=== PATIENT | female | born 1975 | race American Indian/Alaskan Native ===

== ENCOUNTER → 2017-05-23 | Outpatient (CLI) | payer OTHER ==
[2017-05-23 17:27] LABS: FREE T3 2.85 pg/mL (2.77-5.27)
== END ==
LOC: OD 16:03
PROVIDERS: ATTEND Family Medicine
DX: D50.0 Iron deficiency anemia secondary to blood loss (chronic) (principal)
CPT/HCPCS: 36415; 84439; 84481; 86800

== ENCOUNTER 2018-01-30 15:29 | Emergency (ER) | payer OTHER ==
[2018-01-30 15:45] VITALS: BP 133/77
[2018-01-30] MEDS ORDERED: ONDANSETRON 4 MG TAB.RAPDIS PO ONE (15:50)
[2018-01-30] MEDS ORDERED: DIPH/PERTUSS(ACELL)/TETANUS VAC/PF 0.5 ML SYR (>=10YO) IM ONE (15:50)
[2018-01-30] MEDS ORDERED: OXYCODONE-ACETAMINOPHEN 5-325 MG TABLET PO ONE (15:50)
--- NOTE | 2018-01-30 15:51 | ER Document Report ---
ED Medical Screen (RME) - General Chief Complaint: Laceration Stated Complaint: FINGER LACERATION Time Seen by Provider: 01/30/18 15:47 Notes: 42-year-old female patient cut her left volar fingertips with electric hedgetrimmer. TRAVEL OUTSIDE OF THE [place] IN LAST 30 DAYS: No - Related Data Allergies/Adverse Reactions: penicillin G Allergy (Verified 01/30/18 15:48) penicillin G procaine Allergy (Verified 01/30/18 15:48) penicillin V Allergy (Verified 01/30/18 15:48) Penicillins Allergy (Verified 01/30/18 15:48) Past Medical History - Past Medical History Cardiac Medical History: Denies: Hx Coronary Artery Disease, Hx Heart Attack, Hx Hypertension - PREECLAMPSIA Pulmonary Medical History: Denies: Hx Asthma, Hx Bronchitis, Hx COPD, Hx Pneumonia Neurological Medical History: Denies: Hx Cerebrovascular Accident, Hx Seizures Musculoskeltal Medical History: Denies Hx Arthritis Past Surgical History: Denies: Hx Hysterectomy - Immunizations Hx Diphtheria, Pertussis, Tetanus Vaccination: Yes Physical Exam - Vital signs Vitals: Temp Pulse Resp BP Pulse Ox 98.3 F 92 18 133/77 H 97 01/30/18 15:44 01/30/18 15:44 01/30/18 15:44 01/30/18 15:44 01/30/18 15:44 Course - Vital Signs Vital signs: Temp Pulse Resp BP Pulse Ox 98.3 F 92 18 133/77 H 97 01/30/18 15:44 01/30/18 15:44 01/30/18 15:44 01/30/18 15:44 01/30/18 15:44
[2018-01-30] MEDS ORDERED: LIDOCAINE 1% INJ-PF (10 MG/ML) 30 ML SDV INJ ONE (16:30)
--- NOTE | 2018-01-30 18:20 | ER Document Report ---
ED General - General Chief Complaint: Laceration Stated Complaint: FINGER LACERATION Time Seen by Provider: 01/30/18 15:47 Mode of Arrival: Ambulatory Information source: Patient Notes: 42-year-old female presents with laceration to the hand just prior to arrival. Patient notes no loss of sensation is able to move her digits with no difficulty , she does note mild tenderness at the fingers TRAVEL OUTSIDE OF THE [place] IN LAST 30 DAYS: No - HPI Onset: Just prior to arrival Onset/Duration: Sudden Quality of pain: Sharp Severity: Mild Pain Level: 1 Associated symptoms: Other Exacerbated by: Movement Relieved by: Denies Similar symptoms previously: No Recently seen / treated by doctor: No - Related Data Allergies/Adverse Reactions: penicillin G Allergy (Verified 01/30/18 15:48) penicillin G procaine Allergy (Verified 01/30/18 15:48) penicillin V Allergy (Verified 01/30/18 15:48) Penicillins Allergy (Verified 01/30/18 15:48) Past Medical History - Social History Smoking Status: Never Smoker Cigarette use (# per day): No Chew tobacco use (# tins/day): No Smoking Education Provided: No Frequency of alcohol use: None Drug Abuse: None Family History: Reviewed & Not Pertinent Patient has suicidal ideation: No Patient has homicidal ideation: No - Past Medical History Cardiac Medical History: Denies: Hx Coronary Artery Disease, Hx Heart Attack Comment Only: Hx Hypertension - PREECLAMPSIA Pulmonary Medical History: Denies: Hx Asthma, Hx Bronchitis, Hx COPD, Hx Pneumonia Neurological Medical History: Denies: Hx Cerebrovascular Accident, Hx Seizures Renal/ Medical History: Denies: Hx Peritoneal Dialysis Musculoskeltal Medical History: Reports Hx Arthritis Past Surgical History: Reports: Hx Section. Denies: Hx Hysterectomy - Immunizations Hx Diphtheria, Pertussis, Tetanus Vaccination: Yes Review of Systems - Review of Systems Notes: REVIEW OF SYSTEMS: CONSTITUTIONAL : Denies fever, chills, or sweats. Denies recent illness. EENT: Denies eye, ear, throat, or mouth pain or symptoms. Denies nasal or sinus congestion or discharge. Denies throat, tongue, or mouth swelling or difficulty swallowing. CARDIOVASCULAR: Denies chest pain. Denies palpitations or racing or irregular heart beat. Denies ankle edema. RESPIRATORY: Denies cough, cold, or chest congestion. Denies shortness of breath, difficulty breathing, or wheezing. GASTROINTESTINAL: Denies abdominal pain or distention. Denies nausea, vomiting , or diarrhea. Denies blood in vomitus, stools, or per rectum. Denies black, tarry stools. Denies constipation. GENITOURINARY: Denies difficulty urinating, painful urination, burning, frequency, blood in urine, or discharge. FEMALE GENITOURINARY: Denies vaginal bleeding, heavy or abnormal periods, irregular periods. Denies vaginal discharge or odor. MUSCULOSKELETAL: Denies back or neck pain or stiffness. Denies joint pain or swelling. SKIN: Admits to lacerations of the hand HEMATOLOGIC : Denies easy bruising or bleeding. LYMPHATIC: Denies swollen, enlarged glands. NEUROLOGICAL: Denies confusion or altered mental status. Denies passing out or loss of consciousness. Denies dizziness or lightheadedness. Denies headache. Denies weakness or paralysis or loss of use of either side. Denies problems with gait or speech. Denies sensory loss, numbness, or tingling. Denies seizures. PSYCHIATRIC: Denies anxiety or stress. Denies depression, suicidal ideation, or homicidal ideation. ALL OTHER SYSTEMS REVIEWED AND NEGATIVE. PHYSICAL EXAMINATION: GENERAL: Well-appearing, well-nourished and in no acute distress. HEAD: Atraumatic, normocephalic. EYES: Pupils equal round and reactive to light, extraocular movements intact, conjunctiva are normal. ENT: Nares patent, oropharynx clear without exudates. Moist mucous membranes. NECK: Normal range of motion, supple without lymphadenopathy LUNGS: Breath sounds clear to auscultation bilaterally and equal. No wheezes rales or rhonchi. HEART: Regular rate and rhythm without murmurs ABDOMEN: Soft, nontender, nondistended abdomen. No guarding, no rebound. No masses appreciated. Female : deferred Musculoskeletal: Normal range of motion, no pitting or edema. No cyanosis. NEUROLOGICAL: Cranial nerves grossly intact. Normal speech, normal gait. Normal sensory, motor exams PSYCH: Normal mood, normal affect. SKIN: Laceration left hand second digit measuring 3.5 cm left hand third digit measuring 4.5 cm no tendon involvement. Sensation full motor function flexion and extension intact Dictation was performed using [employer] voice recognition software Physical Exam - Vital signs Vitals: Temp Pulse Resp BP Pulse Ox 98.3 F 92 18 133/77 H 97 01/30/18 15:44 01/30/18 15:44 01/30/18 15:44 01/30/18 15:44 01/30/18 15:44 Course - Re-evaluation Re-evalutation: 02/02/18 22:34 Area was cleansed extensively, and digital nerve blocks were performed tetanus was updated sutures were placed, patient was placed in a splint as well. Patient was given very strict return precautions regarding infectious process, given that there is no tendon involvement I do believe she is stable for discharge After performing a Medical Screening Examination, I estimate there is LOW risk for OPEN FRACTURE, COMPARTMENT SYNDROME, TENDON RUPTURE, ACUTE NEUROVASCULAR INJURY, or RETAINED FOREIGN BODY, thus I consider the discharge disposition reasonable. Also, there is no evidence or peritonitis, sepsis, or toxicity. I have reevaluated this patient multiple times and no significant life threatening changes are noted. The patient and I have discussed the diagnosis and risks, and we agree with discharging home with close follow-up with the understanding that symptoms and presentations can change. We also discussed returning to the Emergency Department immediately if new or worsening symptoms occur. We have discussed the symptoms which are most concerning (e.g., changing or worsening pain, fever, numbness, weakness, cool or painful digits) that necessitate immediate return. - Vital Signs Vital signs: Temp Pulse Resp BP Pulse Ox 98.3 F 92 18 133/77 H 97 01/30/18 15:44 01/30/18 15:44 01/30/18 15:44 01/30/18 15:44 01/30/18 15:44 Procedures - Laceration/Wound Repair Left 2nd digit Time completed: 10:50 Wound length (cm): 3.5 Wound's Depth, Shape: Superficial, Irregular, Flap, Contused tissue Laceration pre-procedure: Sterile PPE donned, Sterile drapes applied, Shur- Clens applied Anesthetic type: 1% Lidocaine Volume Anesthetic (mLs): 7 Wound explored: No foreign body removed, Contaminated Irrigated w/ Saline (mLs): 10,000 Wound Debrided: Extensive Wound Repaired With: Sutures Suture Size/Type: 6:0, Ethilon Number of Sutures: 5 Post-procedure wound care: Sterile dressing applied, Splint applied Post-procedure NV exam normal: Yes Complications: No Left 3rd digit Time completed: 10:50 Wound length (cm): 4.5 Wound's Depth, Shape: Irregular, Flap, Contused tissue Laceration pre-procedure: Sterile PPE donned, Sterile drapes applied, Shur- Clens applied Anesthetic type: 1% Lidocaine Volume Anesthetic (mLs): 8 Wound explored: Contaminated Irrigated w/ Saline (mLs): 10,000 Wound Debrided: Extensive Wound Repaired With: Sutures Suture Size/Type: 6:0, Ethilon Number of Sutures: 4 Post-procedure wound care: Sterile dressing applied, Splint applied Post-procedure NV exam normal: Yes Complications: No - Additional Procedures digtal nerve block Time performed: 10:00 - using 15cc of 1% hira without complete nerve block of the 2nd and 3rd digits no complication Discharge - Discharge Clinical Impression: Finger laceration Qualifiers: Encounter type: initial encounter Finger: unspecified finger Damage to nail status: without damage Foreign body presence: without foreign body Laterality: left Qualified Code(s): S61.219A - Laceration without foreign body of unspecified finger without damage to nail, initial encounter Condition: Stable Disposition: HOME, SELF-CARE Instructions: Laceration Care ([facility]), Prophylactic Antibiotic ([facility]), Soap Cleansing ([facility]), Tetanus Immunization Given ([facility]) Prescriptions: Cephalexin Monohydrate [Keflex 500 mg Capsule] 500 mg PO Q6H 5 Days capsule Oxycodone HCl/Acetaminophen [Percocet 5-325 mg Tablet] 1 - 2 tab PO Q4H PRN #15 tablet PRN Reason: Referrals: BRODERICK MUHAMMAD DO [Primary Care Provider] - Follow up as needed
== END 2018-01-30 19:15 | disposition home or self-care (01) ==
LOC: ER 15:29
DX: S61.211A Laceration without foreign body of left index finger without damage to nail, initial encounter (principal); S61.213A Laceration without foreign body of left middle finger without damage to nail, initial encounter; W27.8XXA Contact with other nonpowered hand tool, initial encounter; Y93.H2 Activity, gardening and landscaping; Z88.0 Allergy status to penicillin; Z23 Encounter for immunization
CPT/HCPCS: 99283; 90471; 90715; 12004; S0119; J3490

== ENCOUNTER 2020-07-09 19:20 | Emergency (ER) | payer OTHER ==
--- NOTE | 2020-07-09 19:50 | ER Document Report ---
ED Medical Screen (RME) - General Chief Complaint: Blood Pressure Problem Stated Complaint: BLOOD PRESSURE Time Seen by Provider: 07/09/20 19:42 Primary Care Provider: BRODERICK MUHAMMAD DO [Primary Care Provider] - Follow up as needed Mode of Arrival: Ambulatory Information source: Patient Notes: HPI; 45-year-old female presents to the emergency room stating that she was dizzy earlier and was having some chest pressure earlier today. States her blood pressure was 161/106. States she took her blood pressure because she was feeling stressed. States her daughter is in [place] and her car is broken down and she is unable to get to her which she feels is causing her stress. She states the chest pressure has been persistent all day even when she tried to lay down. States it does radiate into her jaw. She denies any shortness of breath, no difficulty breathing. No recent travel. No COVID-19 exposure. Does have a family history of hypertension. Patient has a history of preeclampsia. PE: Alert and oriented x3. Mild distress noted. Lungs: Clear to auscultation without rales, rhonchi, wheezes. Heart: Regular rate rhythm without murmurs, rubs, gallops. Chest is nontender to palpation. Patient did not get an EKG on arrival as she did not mention chest pain is 1 of her complaints until she was being seen in the triage room. I have greeted and performed a rapid initial assessment of this patient. A comprehensive ED assessment and evaluation of the patient, analysis of test results and completion of the medical decision making process will be conducted by additional ED providers. I have specifically instructed the patient or family members with the patient to immediately return to any nursing staff should anything change in the patient's condition or with their chief complaint. TRAVEL OUTSIDE OF THE [place] IN LAST 30 DAYS: No - Related Data Allergies/Adverse Reactions: penicillin G Allergy (Verified 01/30/18 15:48) penicillin G procaine Allergy (Verified 01/30/18 15:48) penicillin V Allergy (Verified 01/30/18 15:48) Penicillins Allergy (Verified 01/30/18 15:48) Past Medical History - Past Medical History Cardiac Medical History: Denies: Hx Coronary Artery Disease, Hx Heart Attack Comment Only: Hx Hypertension - PREECLAMPSIA Pulmonary Medical History: Denies: Hx Asthma, Hx Bronchitis, Hx COPD, Hx Pneumonia Neurological Medical History: Denies: Hx Cerebrovascular Accident, Hx Seizures Renal/ Medical History: Denies: Hx Peritoneal Dialysis Musculoskeltal Medical History: Reports Hx Arthritis Past Surgical History: Reports: Hx Section. Denies: Hx Hysterectomy - Immunizations Hx Diphtheria, Pertussis, Tetanus Vaccination: Yes Physical Exam - Vital signs Vitals: Temp Pulse Resp BP Pulse Ox 98.6 F 66 16 154/91 H 100 07/09/20 19:34 07/09/20 19:34 07/09/20 19:34 07/09/20 19:34 07/09/20 19:34 Course - Vital Signs Vital signs: Temp Pulse Resp BP Pulse Ox 98.6 F 66 16 154/91 H 100 07/09/20 19:34 07/09/20 19:34 07/09/20 19:34 07/09/20 19:34 07/09/20 19:34 Doctor's Discharge - Discharge Referrals: BRODERICK MUHAMMAD DO [Primary Care Provider] - Follow up as needed
[2020-07-09 20:20] LABS: ABSOLUTE EOSINOPHILS # (AUTO) 0.1 10^3/uL (0.0-0.6); ABSOLUTE MONOCYTES (AUTO) 0.5 10^3/uL (0.1-1.4); ABSOLUTE NEUT (AUTO) 2.4 10^3/uL (1.7-8.2); BASOPHILS % (AUTO) 0.6 % (0-2); EOSINOPHILS % (AUTO) 1.5 % (0-6); HEMATOCRIT 39.1 % (36.0-47.0); HEMOGLOBIN 13.3 g/dL (12.0-15.5); MEAN CORPUSCULAR HEMOGLOBIN 30.2 pg (27.0-33.4); MEAN CORPUSCULAR HGB CONC 34.1 g/dL (32.0-36.0); MEAN CORPUSCULAR VOLUME 89 fl (80-97); MONOCYTES % (AUTO) 9.2 % (3-13); PLATELET COUNT 248 10^3/uL (150-450); RED BLOOD COUNT 4.41 10^6/uL (3.72-5.28); RED CELL DISTRIBUTION WIDTH 13.2 % (11.5-14.0); SEGMENTED NEUTROPHILS % (AUTO) 48.7 % (42-78); TOTAL CELLS COUNTED % (AUTO) 100 %
--- NOTE | 2020-07-09 20:28 | RADIOLOGY REPORT (SQ) ---
CLINICAL INDICATION: chest pain. TECHNIQUE: PA and lateral views were obtained of the chest COMPARISON: None. FINDINGS: The cardiomediastinal silhouette is top normal. The lungs are grossly clear. No evidence of effusion or pneumothorax. Visualized bones are unremarkable. . IMPRESSION: No evidence of active intrathoracic disease .
[2020-07-09 20:29] LABS: ALBUMIN 4.2 g/dL (3.5-5.0); ALKALINE PHOSPHATASE 58 U/L (38-126); ANION GAP 9 (5-19); ASPARTATE AMINO TRANSFERASE 18 U/L (14-36); BILIRUBIN,DIRECT 0.3 mg/dL (0.0-0.4); BILIRUBIN,TOTAL 0.6 mg/dL (0.2-1.3); BLOOD UREA NITROGEN 10 mg/dL (7-20); CARBON DIOXIDE 24 mmol/L (22-30); CHLORIDE 106 mmol/L (98-107); CREATINE KINASE 54 U/L (30-135); GLUCOSE 96 mg/dL (75-110); POTASSIUM 4.2 mmol/L (3.6-5.0); TOTAL PROTEIN 7.3 g/dL (6.3-8.2)
[2020-07-09 21:06] LABS: CREATINE KINASE MB < 0.22 ng/mL (<4.55); TROPONIN I < 0.012 ng/mL
--- NOTE | 2020-07-09 23:05 | EKG REPORT ---
SEVERITY:- NORMAL ECG - SINUS RHYTHM : Confirmed by: Adriana Jeffers MD 09-Jul-2020 23:05:11
--- NOTE | 2020-07-09 23:51 | ER Document Report ---
ED General - General Chief Complaint: Chest Pain Stated Complaint: BLOOD PRESSURE Time Seen by Provider: 07/09/20 19:42 Primary Care Provider: BRODERICK MUHAMMAD DO [Primary Care Provider] - Follow up in 1 week Mode of Arrival: Ambulatory Notes: Patient is a 45-year-old female who comes emergency department for chief complaint of concerns about her blood pressure. She states that she was feeling slightly lightheaded earlier so she had her sister check her blood pressure and it was 161/106, she states that she also will randomly get a fleeting sensation of tightness in her chest although she states she has had this going on for a long time. She denies chest pain specifically or at this time. He denies shortness of breath, headache, focal numbness or weakness. She states that her daughter got the situation out of town that she was unable to reach for and this was a source of stress for her. She states she also sleeps poorly and worries all the time. However she denies depression, SI or HI. She has a positive family history of MD and hypertension, she states she is not currently on any medications, she denies smoking, recreational drugs, alcohol. She states she had a full work-up by cardiology and was told everything was normal. TRAVEL OUTSIDE OF THE [place] IN LAST 30 DAYS: No - Related Data Allergies/Adverse Reactions: penicillin G Allergy (Verified 01/30/18 15:48) penicillin G procaine Allergy (Verified 01/30/18 15:48) penicillin V Allergy (Verified 01/30/18 15:48) Penicillins Allergy (Verified 01/30/18 15:48) Past Medical History - General Information source: Patient - Social History Smoking Status: Never Smoker Frequency of alcohol use: None Drug Abuse: None Lives with: Family Family History: Reviewed & Not Pertinent - Past Medical History Cardiac Medical History: Denies: Hx Coronary Artery Disease, Hx Heart Attack Comment Only: Hx Hypertension - PREECLAMPSIA Pulmonary Medical History: Denies: Hx Asthma, Hx Bronchitis, Hx COPD, Hx Pneumonia Neurological Medical History: Denies: Hx Cerebrovascular Accident, Hx Seizures Renal/ Medical History: Denies: Hx Peritoneal Dialysis Musculoskeletal Medical History: Reports Hx Arthritis Past Surgical History: Reports: Hx Section. Denies: Hx Hysterectomy - Immunizations Hx Diphtheria, Pertussis, Tetanus Vaccination: Yes Review of Systems - Review of Systems Constitutional: No symptoms reported EENT: No symptoms reported Cardiovascular: See HPI Respiratory: No symptoms reported Gastrointestinal: No symptoms reported Genitourinary: No symptoms reported Female Genitourinary: No symptoms reported Musculoskeletal: No symptoms reported Skin: No symptoms reported Hematologic/Lymphatic: No symptoms reported Neurological/Psychological: See HPI Physical Exam - Vital signs Vitals: Temp Pulse Resp BP Pulse Ox 98.6 F 66 16 154/91 H 100 07/09/20 19:34 07/09/20 19:34 07/09/20 19:34 07/09/20 19:34 07/09/20 19:34 - Notes Notes: GENERAL: Alert, interactive, does not appear to be in distress although she is restless HEAD: Normocephalic, atraumatic. EYES: Pupils equal, round, and reactive to light. Extraocular movements intact. ENT: Oral mucosa moist, tongue midline. Oropharynx unremarkable. Airway patent. NECK: Full range of motion. Supple. Trachea midline. No lymphadenopathy. LUNGS: Clear to auscultation bilaterally, no wheezes, rales, or rhonchi. No resp iratory distress. Non-tender chest wall. HEART: Regular rate and rhythm. No murmur ABDOMEN: Soft, non-tender. Non-distended. Bowel sounds present in all 4 quadrants. GENITOURINARY: Deferred EXTREMITIES: Moves all 4 extremities spontaneously. No edema, normal radial and dorsalis pedis pulses bilaterally. No cyanosis. BACK: no cervical, thoracic, lumbar midline tenderness. No saddle anesthesia, normal distal neurovascular exam. Moves all extremities in full range of motion. NEUROLOGICAL: Alert and oriented x3. Normal speech. Cranial nerves II through XII grossly intact. Strength 5/5 in all extremities. PSYCH: Patient speaks anxiously, appears restless SKIN: Warm, dry, normal turgor. No rashes or lesions noted. Course - Re-evaluation Re-evalutation: Patient initially very anxious. Patient repeatedly asked questions about her blood pressure. However she denies headache, denies chest pain, she has no current symptoms, she is otherwise well-appearing. Physical examination unremarkable. Blood pressure is only borderline elevated. Vital signs unremarkable otherwise. I did review work-up from triage including CBC, chemistry, troponin, these are unremarkable. Chest x-ray and EKG unremarkable. I did provide patient with a dose of lorazepam for anxiety, however when we rechecked her blood pressure and it was not significantly different patient became very upset. I attempted to discuss again with patient blood pressure, long-term monitoring and management, and emergent concerns. Since she does not have any headache, chest pain, urinary retention, acute organ failure, I do not have any additional concerns at this time. After this discussion patient became calm, states appreciation, states she is ready to go home, she states she will monitor her blood pressure at home and follow-up closely with her primary care provider within the week. Discussed with family at bedside. Patient with no complaints, stable and well- appearing at time of discharge. - Vital Signs Vital signs: Temp Pulse Resp BP Pulse Ox 98.6 F 63 16 151/97 H 97 07/09/20 19:34 07/10/20 00:56 07/10/20 00:56 07/10/20 00:56 07/10/20 00:56 - Laboratory Result Diagrams: 07/09/20 19:59 07/09/20 19:59 - EKG Interpretation by Me Additional EKG results interpreted by me: EKG shows sinus rhythm at a rate of 63, QTc 422, normal axis, no T wave inversions or ST segment changes in consecutive leads Discharge - Discharge Clinical Impression: Elevated blood pressure reading, Dizziness, Anxiety Condition: Stable Disposition: HOME, SELF-CARE Additional Instructions: Your tests tonight do not show any concerning findings including general blood and chemistry evaluations, heart and lung evaluations. Your blood pressure is mildly elevated tonight, I recommend that you keep a record of your blood pressures (take 2-3 blood pressures a day, record this number, do this for a week, showed these numbers to your primary care for additional management of your blood pressure). I also recommend attempts to improve your sleep and if possible reduce stressful situations in your life. Return to the emergency department for any concerning symptoms including developing chest pain, severe headache, vomiting, passing out, or any other concerning symptoms. Forms: Return to Work Referrals: BRODERICK MUHAMMAD DO [Primary Care Provider] - Follow up in 1 week
[2020-07-10] MEDS ORDERED: LORAZEPAM 1 MG TABLET PO ONE (00:05)
[2020-07-10 00:56] VITALS: BP 151/97
== END 2020-07-10 01:05 | disposition home or self-care (01) ==
LOC: ER 19:20
DX: F41.9 Anxiety disorder, unspecified (principal); R03.0 Elevated blood-pressure reading, without diagnosis of hypertension; R42 Dizziness and giddiness; R07.9 Chest pain, unspecified; Z88.0 Allergy status to penicillin
CPT/HCPCS: 36415; 71046; 80053; 82550; 82553; 84484; 84703; 85025; 93005; 93010; 99285